=== PATIENT | female | born 1985 | race Caucasian/White ===

== ENCOUNTER 2016-11-11 21:25 | Emergency (ER) | payer OTHER ==
[~2016-11-11 21:25] MED LIST: BUSPIRONE HCL7.5 MG PO; DICYCLOMINE HCL20 MG PO; ESCITALOPRAM OX20 MG PO; FLUTICASONE PR50 MCG; LYRICA100 MG PO; PHENERGAN EQUIV25 MG PO; SUMATRIPTAN SUC25 MG PO; VITAMIN B-122500 MCG PO; VITAMIN D-31000 UNIT PO
--- NOTE | 2016-11-11 22:44 | ED ORDER SUMMARY ---
..... Patient: RITU SMITH OrderSheet [facility] VisitID: [id number] [place] [address] 31y, F Registration Date/Time: 11/11/2016 ORDER SHEET Weight: 52.1 kg (stated) Allergies: No Known Drug Allergy GENERAL ORDERS: Hand 3 or 4V Right Urgent (21:35 11/11/2016 Kathleen Gonzáles.A.-C) (Ack 21:39 AMcQuoid ER Tech1) (21:49 MCampbell) Splint (UE) (Right) (velcro thumb splint) (22:24 11/11/2016 Kathleen Gonzáles.A.-C) (22:43 Edwige Denney) MEDICATION ORDERS: IV FLUIDS: ORDER SHEET NOTES: [Electronically signed by Jeanette Stewart R.N. (00:17 11/12/2016)] [Electronically signed by Carmen CheungATim-Brandon (13:47 11/12/2016)] [Electronically locked/signed by Jeanette Stewart R.N. (00:17 11/12/2016)]
--- NOTE | 2016-11-11 22:44 | ED ORDER SUMMARY ---
..... Patient: RITU SMITH OrderSheet [facility] VisitID: [id number] [place] [address] 31y, F Registration Date/Time: 11/11/2016 ORDER SHEET Weight: 52.1 kg (stated) Allergies: No Known Drug Allergy GENERAL ORDERS: Hand 3 or 4V Right Urgent (21:35 11/11/2016 Kathleen Gonzáles.A.-C) (Ack 21:39 AMcQuoid ER Tech1) (21:49 MCampbell) Splint (UE) (Right) (velcro thumb splint) (22:24 11/11/2016 Kathleen Gonzáles.A.-C) (22:43 Edwige Denney) MEDICATION ORDERS: IV FLUIDS: ORDER SHEET NOTES: [Electronically signed by Jeanette Stewart R.N. (00:17 11/12/2016)] [Electronically signed by Carmen CheungATim-Brandon (13:47 11/12/2016)] [Electronically locked/signed by Jeanette Stewart R.N. (00:17 11/12/2016)]
--- NOTE | 2016-11-11 22:44 | ED CLINICAL REPORT ---
Clinical Report - Physicians/Mid Levels [facility] [address] [place] [address] 11/11/2016 21:24 Patient: RITU SMITH Time Seen: 21:38 Nov 11 2016. Arrived- By private vehicle. Historian- patient. HISTORY OF PRESENT ILLNESS Chief Complaint: Injury to the right hand. The injury happened just prior to arrival. The patient sustained a direct blow and crush injury. Patient is experiencing mild pain. Patient denies injury to the head or neck. ( Injury to R. thumb from direct trauma by football, pain with movement, swelling.). REVIEW OF SYSTEMS The patient sustained a laceration. All systems otherwise negative, except as recorded above. PAST HISTORY The patient's dominant hand is the right. She has had a prior injury to the same area ( non operable scaphoid fx). Tetanus immunization status is up-to-date. SOCIAL HISTORY Smoker- current status unknown. History of drug use: marijuana. ADDITIONAL NOTES The nursing notes have been reviewed. PHYSICAL EXAM Vital Signs: 11/11/2016 21:30 BP: 135/80. HR: 77. RR: 16. O2 saturation: 98%. Mattson-Rushing pain scale: 4/10. Appearance: Alert. No acute distress. Head: Head atraumatic. ENT: Ears normal. Nose normal. Neck: Normal inspection. CVS: Normal heart rate and rhythm. Heart sounds normal. Respiratory: No respiratory distress. Breath sounds normal. No chest wall injury. Extremities: Thenar eminence, right hand: mild tenderness and swelling. No abrasion or foreign body. Right thumb: mild tenderness and swelling and small ecchymosis of the volar aspect and proximal phalanx. Neurovascular intact distally. No limitation in movement. Tip of right thumb. No tenderness or swelling. Soft tissue tenderness present. Bony tenderness present. LABS, X-RAYS, AND EKG Rt Hand X-ray: (IMPRESSION: 1. Normal right hand. Electronically Final signed by:Homer Espinoza MD 11/11/2016 11:12:42 PM). PROGRESS AND PROCEDURES Splint Application: Time: 2229. Velcro splint applied to right hand and wrist. thumb spica. Course of Care: No snuff box tenderness, fair rom, with swelling as ntoed. Full rom at wrist. Stable. No laceration, good distal sensation. No signs of fx on xr. Splinted for comfort, to f/u outpatient. Patient is stable. Symptoms better. Disposition: Discharged. CLINICAL IMPRESSION Sprain. INSTRUCTIONS Prescription Medications: Motrin 800 mg tablets: take 1 tablet orally every 8 hours for 5 days, as needed for pain. Dispense ten (10). No refill. Substitution is permissible. (Electronically signed by Carmen Cheung P.A.-C 11/12/2016 13:47)
--- NOTE | 2016-11-11 22:44 | ED CLINICAL REPORT ---
Clinical Report - Physicians/Mid Levels [facility] [address] [place] [address] 11/11/2016 21:24 Patient: RITU SMITH Time Seen: 21:38 Nov 11 2016. Arrived- By private vehicle. Historian- patient. HISTORY OF PRESENT ILLNESS Chief Complaint: Injury to the right hand. The injury happened just prior to arrival. The patient sustained a direct blow and crush injury. Patient is experiencing mild pain. Patient denies injury to the head or neck. ( Injury to R. thumb from direct trauma by football, pain with movement, swelling.). REVIEW OF SYSTEMS The patient sustained a laceration. All systems otherwise negative, except as recorded above. PAST HISTORY The patient's dominant hand is the right. She has had a prior injury to the same area ( non operable scaphoid fx). Tetanus immunization status is up-to-date. SOCIAL HISTORY Smoker- current status unknown. History of drug use: marijuana. ADDITIONAL NOTES The nursing notes have been reviewed. PHYSICAL EXAM Vital Signs: 11/11/2016 21:30 BP: 135/80. HR: 77. RR: 16. O2 saturation: 98%. Mattson-Rushing pain scale: 4/10. Appearance: Alert. No acute distress. Head: Head atraumatic. ENT: Ears normal. Nose normal. Neck: Normal inspection. CVS: Normal heart rate and rhythm. Heart sounds normal. Respiratory: No respiratory distress. Breath sounds normal. No chest wall injury. Extremities: Thenar eminence, right hand: mild tenderness and swelling. No abrasion or foreign body. Right thumb: mild tenderness and swelling and small ecchymosis of the volar aspect and proximal phalanx. Neurovascular intact distally. No limitation in movement. Tip of right thumb. No tenderness or swelling. Soft tissue tenderness present. Bony tenderness present. LABS, X-RAYS, AND EKG Rt Hand X-ray: (IMPRESSION: 1. Normal right hand. Electronically Final signed by:Homer Espinoza MD 11/11/2016 11:12:42 PM). PROGRESS AND PROCEDURES Splint Application: Time: 2229. Velcro splint applied to right hand and wrist. thumb spica. Course of Care: No snuff box tenderness, fair rom, with swelling as ntoed. Full rom at wrist. Stable. No laceration, good distal sensation. No signs of fx on xr. Splinted for comfort, to f/u outpatient. Patient is stable. Symptoms better. Disposition: Discharged. CLINICAL IMPRESSION Sprain. INSTRUCTIONS Prescription Medications: Motrin 800 mg tablets: take 1 tablet orally every 8 hours for 5 days, as needed for pain. Dispense ten (10). No refill. Substitution is permissible. (Electronically signed by Carmen Cheung P.A.-C 11/12/2016 13:47)
--- NOTE | 2016-11-11 22:44 | ED NURSING NOTES ---
Clinical Report - Nurses [facility] [address] [place] [address] 11/11/2016 21:24 Patient: RITU SMITH TRIAGE Triage time 21:30. Acuity: LEVEL 4. Chief Complaint: INJURY TO RIGHT HAND. Alert. No acute distress. --21:35 Jeanette Stewart R.N. 21:30 11/11/16. BP: 135/80. HR: 77. RR: 16. O2 saturation: 98% on room air. Mattson-Rushing pain scale: 4/10. --21:35 Jeanette Stewart R.N. Weight: 52.1 kg stated. Height/Length: 66 inches Per Patient. BMI: 18.5. --21:33 Jeanette Stewart R.N. Medications None. --21:31 Jeanette Stewart R.N. Allergies No Known Drug Allergy. --21:31 Jeanette Stewart R.N. History Arrived by private vehicle. Historian: patient. Primary physician (Alexander). ( yesterday pt was playing football with her child and jammed right thumb.). This occurred yesterday (at about 1700). Mechanism of injury: a blow. PAST MEDICAL HX: Tetanus status: up-to-date. Immunizations: up-to-date. SOCIAL HX: Heavy tobacco smoker (cigarette)- less than 1 pack per day. History of drug use: marijuana. No alcohol use. --21:35 Jeanette Stewart R.N. PROBLEMS: Anorexia Nervosa. Fibromyalgia. Anxiety Reaction. Migraine Headache. Pleurisy. Pulmonary Embolism. Back Pain. Blood clot in lung during preg . Abscess. --21:32 Jeanette Stewart R.N. Lumbar Radiculopathy [RuleOut]. --21:32 Jeanette Stewart R.N. ADDITIONAL SURGERIES: Back Surgery. Tonsillectomy. Tubal Ligation. --21:32 Jeanette Stewart R.N. Interventions ID band on patient. To treatment room. --21:35 Jeanette Stewart R.N. PHYSICAL ASSESSMENT Ambulatory to room. GENERAL / NEURO / PSYCH: Oriented X 4. Alert. Appears in no acute distress. EXTREMITIES: Capillary refill is less than 2 seconds in the extremities. Neuro-vascular status intact to the extremity. Thenar eminence, right hand: tenderness, swelling and ecchymosis. SKIN: Skin is warm and dry. --21:35 Jeanette Stewart R.N. NURSING PROGRESS NOTES Two patient identifiers checked. Call light placed in reach. Side rails up x 1. Bed placed in lowest position. Brakes of bed on. --21:35 Jeanette Stewart R.N. Patient ready for evaluation- chart flagged. --21:35 Jeanette Stewart R.N. Velcro upper extremity splint applied to right wrist by nurse. Distal pulses intact, sensation intact and motor within normal limits. --22:44 Jeanette Stewart R.N. DISPOSITION / DISCHARGE 22:41 11/11/16. BP: deferred. HR: deferred. RR: 15. O2 saturation: deferred. Temp: deferred. Mattson-Rushing pain scale: 2/10. --22:44 Jeanette Stewart R.N. Condition at departure: stable. No learning barriers present. Discharge instructions provided and reviewed with the patient. Reviewed medication(s) side effects, precautions, dosing and course information. Prescription(s) given to the patient. Patient verbalized understanding. Written instructions provided in [place]. The patient was discharged home. She left the Emergency Department ambulatory and via private vehicle. Patient driving. --22:45 Jeanette Stewart R.N. Locked/Released at 11/12/2016 0:17 by Jeanette Stewart R.N.
--- NOTE | 2016-11-11 22:44 | ED NURSING NOTES ---
Clinical Report - Nurses [facility] [address] [place] [address] 11/11/2016 21:24 Patient: RITU SMITH TRIAGE Triage time 21:30. Acuity: LEVEL 4. Chief Complaint: INJURY TO RIGHT HAND. Alert. No acute distress. --21:35 Jeanette Stewart R.N. 21:30 11/11/16. BP: 135/80. HR: 77. RR: 16. O2 saturation: 98% on room air. Mattson-Rushing pain scale: 4/10. --21:35 Jeanette Stewart R.N. Weight: 52.1 kg stated. Height/Length: 66 inches Per Patient. BMI: 18.5. --21:33 Jeanette Stewart R.N. Medications None. --21:31 Jeanette Stewart R.N. Allergies No Known Drug Allergy. --21:31 Jeanette Stewart R.N. History Arrived by private vehicle. Historian: patient. Primary physician (Alexander). ( yesterday pt was playing football with her child and jammed right thumb.). This occurred yesterday (at about 1700). Mechanism of injury: a blow. PAST MEDICAL HX: Tetanus status: up-to-date. Immunizations: up-to-date. SOCIAL HX: Heavy tobacco smoker (cigarette)- less than 1 pack per day. History of drug use: marijuana. No alcohol use. --21:35 Jeanette Stewart R.N. PROBLEMS: Anorexia Nervosa. Fibromyalgia. Anxiety Reaction. Migraine Headache. Pleurisy. Pulmonary Embolism. Back Pain. Blood clot in lung during preg . Abscess. --21:32 Jeanette Stewart R.N. Lumbar Radiculopathy [RuleOut]. --21:32 Jeanette Stewart R.N. ADDITIONAL SURGERIES: Back Surgery. Tonsillectomy. Tubal Ligation. --21:32 Jeanette Stewart R.N. Interventions ID band on patient. To treatment room. --21:35 Jeanette Stewart R.N. PHYSICAL ASSESSMENT Ambulatory to room. GENERAL / NEURO / PSYCH: Oriented X 4. Alert. Appears in no acute distress. EXTREMITIES: Capillary refill is less than 2 seconds in the extremities. Neuro-vascular status intact to the extremity. Thenar eminence, right hand: tenderness, swelling and ecchymosis. SKIN: Skin is warm and dry. --21:35 Jeanette Stewart R.N. NURSING PROGRESS NOTES Two patient identifiers checked. Call light placed in reach. Side rails up x 1. Bed placed in lowest position. Brakes of bed on. --21:35 Jeanette Stewart R.N. Patient ready for evaluation- chart flagged. --21:35 Jeanette Stewart R.N. Velcro upper extremity splint applied to right wrist by nurse. Distal pulses intact, sensation intact and motor within normal limits. --22:44 Jeanette Stewart R.N. DISPOSITION / DISCHARGE 22:41 11/11/16. BP: deferred. HR: deferred. RR: 15. O2 saturation: deferred. Temp: deferred. Mattson-Rushing pain scale: 2/10. --22:44 Jeanette Stewart R.N. Condition at departure: stable. No learning barriers present. Discharge instructions provided and reviewed with the patient. Reviewed medication(s) side effects, precautions, dosing and course information. Prescription(s) given to the patient. Patient verbalized understanding. Written instructions provided in [place]. The patient was discharged home. She left the Emergency Department ambulatory and via private vehicle. Patient driving. --22:45 Jeanette Stewart R.N. Locked/Released at 11/12/2016 0:17 by Jeanette Stewart R.N.
--- NOTE | 2016-11-11 23:15 | DIAGNOSTIC IMAGING REPORT ---
PROCEDURE: XR HAND 3 OR 4 VIEWS - RIGHT INDICATION: Right hand and thumb trauma. TECHNIQUE: Four views. COMPARISON: None. FINDINGS: Osseous structures and joint spaces are normal. Right thumb is normal. IMPRESSION: 1. Normal right hand.
--- NOTE | 2016-11-12 13:47 | ED DISCHARGE INSTRUCTIONS ---
Patient: RITU SMITH General Instructions [facility] VisitID: [id number] [place] [address] 31y, F Registration Date/Time: 11/11/2016 Sprain. INSTRUCTIONS Prescription Medications: Motrin 800 mg tablets: take 1 tablet orally every 8 hours for 5 days, as needed for pain. Dispense ten (10). No refill. Substitution is permissible. ADDITIONAL INFORMATION Sprain, Finger A sprain is a stretching or tearing of the ligaments that hold a joint together. There are no broken bones. Sprains take from three to six weeks to heal. A sprained finger may be treated with a splint or "jay tape" (taping the injured finger to the one next to it for support). Minor sprains may require no additional support. Home care The following guidelines will help you care for your injury at home: 1) Keep your hand elevated to reduce pain and swelling. This is very important during the first 48 hours. 2) Apply an ice pack (ice cubes in a plastic bag, wrapped in a towel) over the injured area for 20 minutes every 12 hours the first day. You should continue with ice packs 34 times a day for the next two days. Continue the use of ice packs for relief of pain and swelling as needed. 3) If jay tape was applied and it becomes wet or dirty, change it. You may replace it with paper, plastic or cloth tape. Cloth tape and paper tapes must be kept dry. Keep the jay tape in place for at least four weeks. 4) If a splint was applied, wear it for the time advised. 5) You may use acetaminophen or ibuprofen to control pain, unless another pain medicine was prescribed.If you have chronic liver or kidney disease or ever had a stomach ulcer or GI bleeding, talk with your doctor before using these medicines. Follow-up care Follow up with your doctor, or as directed, if the pain does not begin to improve. Finger joints will become stiff if immobile for too long. If a splint was applied, ask your doctor when it is safe to begin [id number] exercises. Any X-rays you had today dont show any broken bones, breaks, or fractures. Sometimes fractures dont show up on the first X-ray. Bruises and sprains can sometimes hurt as much as a fracture. These injuries can take time to heal completely. If your symptoms dont improve or they get worse, talk with your doctor. You may need a repeat X-ray. When to seek medical care Get prompt medical attention if any of the following occur: Pain or swelling increases Fingers or hand becomes cold, blue, numb, or tingly You have been given the following additional information: Sprain Finger (Electronically signed by Carmen Cheung P.A.-C 11/12/2016 13:47)
--- NOTE | 2016-11-12 13:47 | ED MAR SUMMARY ---
..... Medication Administration Record [facility] [address] [place], [place] [id number] Patient: RITU SMITH Visit ID: [id number] 31y, F Weight: 52.1 kg Height/Length: 66 in BMI: 18.5 ALLERGIES: No Known Drug Allergy
--- NOTE | 2016-11-12 13:47 | ED DISCHARGE INSTRUCTIONS ---
Patient: RITU SMITH General Instructions [facility] VisitID: [id number] [place] [address] 31y, F Registration Date/Time: 11/11/2016 Sprain. INSTRUCTIONS Prescription Medications: Motrin 800 mg tablets: take 1 tablet orally every 8 hours for 5 days, as needed for pain. Dispense ten (10). No refill. Substitution is permissible. ADDITIONAL INFORMATION Sprain, Finger A sprain is a stretching or tearing of the ligaments that hold a joint together. There are no broken bones. Sprains take from three to six weeks to heal. A sprained finger may be treated with a splint or "jay tape" (taping the injured finger to the one next to it for support). Minor sprains may require no additional support. Home care The following guidelines will help you care for your injury at home: 1) Keep your hand elevated to reduce pain and swelling. This is very important during the first 48 hours. 2) Apply an ice pack (ice cubes in a plastic bag, wrapped in a towel) over the injured area for 20 minutes every 12 hours the first day. You should continue with ice packs 34 times a day for the next two days. Continue the use of ice packs for relief of pain and swelling as needed. 3) If jay tape was applied and it becomes wet or dirty, change it. You may replace it with paper, plastic or cloth tape. Cloth tape and paper tapes must be kept dry. Keep the jay tape in place for at least four weeks. 4) If a splint was applied, wear it for the time advised. 5) You may use acetaminophen or ibuprofen to control pain, unless another pain medicine was prescribed.If you have chronic liver or kidney disease or ever had a stomach ulcer or GI bleeding, talk with your doctor before using these medicines. Follow-up care Follow up with your doctor, or as directed, if the pain does not begin to improve. Finger joints will become stiff if immobile for too long. If a splint was applied, ask your doctor when it is safe to begin [id number] exercises. Any X-rays you had today dont show any broken bones, breaks, or fractures. Sometimes fractures dont show up on the first X-ray. Bruises and sprains can sometimes hurt as much as a fracture. These injuries can take time to heal completely. If your symptoms dont improve or they get worse, talk with your doctor. You may need a repeat X-ray. When to seek medical care Get prompt medical attention if any of the following occur: Pain or swelling increases Fingers or hand becomes cold, blue, numb, or tingly You have been given the following additional information: Sprain Finger (Electronically signed by Carmen Cheung P.A.-C 11/12/2016 13:47)
--- NOTE | 2016-11-12 13:47 | ED MED RECONCILIATION SUMMARY ---
Patient: RITU SMITH Medication Reconciliation Report [facility] VisitID: [id number] [place] [address] 31y, [place] Registration Date/Time: 11/11/2016 Weight: 52.1 kg Height/Length: 66 in. BMI: 18.5 ALLERGIES: No Known Drug Allergy The patient's Home Medications are listed below: NONE. The source(s) of the original Home Medication information: Not obtained. The following Medications were given to the patient in the Emergency Department: None. The following Medications were prescribed to the patient: Motrin 800 mg tablets: take 1 tablet orally every 8 hours for 5 days, as needed for pain. Dispense ten (10). No refill. Substitution is permissible. -- Carmen Cheung P.A.-C
--- NOTE | 2016-11-12 13:47 | ED MAR SUMMARY ---
..... Medication Administration Record [facility] [address] [place], [place] [id number] Patient: RITU SMITH Visit ID: [id number] 31y, F Weight: 52.1 kg Height/Length: 66 in BMI: 18.5 ALLERGIES: No Known Drug Allergy
--- NOTE | 2016-11-12 13:47 | ED MED RECONCILIATION SUMMARY ---
Patient: RITU SMITH Medication Reconciliation Report [facility] VisitID: [id number] [place] [address] 31y, F Registration Date/Time: 11/11/2016 Weight: 52.1 kg Height/Length: 66 in. BMI: 18.5 ALLERGIES: No Known Drug Allergy The patient's Home Medications are listed below: NONE. The source(s) of the original Home Medication information: Not obtained. The following Medications were given to the patient in the Emergency Department: None. The following Medications were prescribed to the patient: Motrin 800 mg tablets: take 1 tablet orally every 8 hours for 5 days, as needed for pain. Dispense ten (10). No refill. Substitution is permissible. -- Carmen Cheung P.A.-C
== END 2016-11-11 22:41 | disposition home or self-care (01) ==
LOC: ED SRH 21:25
DX: S63.8X1A Sprain of other part of right wrist and hand, initial encounter (principal); W21.01XA Struck by football, initial encounter; Y92.9 Unspecified place or not applicable; Y99.9 Unspecified external cause status; Y93.9 Activity, unspecified